=== PATIENT | female | born 1995 | race African-American/Black ===

== ENCOUNTER 2017-12-06 20:25 | Emergency (ER) | payer MEDICAID ==
[~2017-12-06] VITALS: Ht 175.3 cm; Wt 68.7 kg
[2017-12-06 21:40] LABS: CULTURE INDICATED? YES; MICROSCOPIC INDICATED
[2017-12-06 21:46] LABS: BASOPHILS # (AUTO) 0.02 x10^3/uL (0-0.1); BASOPHILS % (AUTO) 1 % (0-1); EOSINOPHILS # (AUTO) 0.18 x10^3/uL (0-0.4); EOSINOPHILS % (AUTO) 3 % (1-7); LYMPHOCYTES # (AUTO) 2.06 x10^3/uL (1-3.4); LYMPHOCYTES % (AUTO) 38 % (22-44); MD NO; MEAN CORPUSCULAR HEMOGLOBIN 25.7 pg (27.0-34.8); MEAN CORPUSCULAR HGB CONC 31.9 g/dL (32.4-35.8); MEAN CORPUSCULAR VOLUME 80.5 fL (80-100); MEAN PLATELET VOLUME 9.7 fL (7.4-10.4); MONOCYTES # (AUTO) 0.58 x10^3/uL (0.2-0.8); MONOCYTES % (AUTO) 11 % (2-9); NEUTROPHILS # (AUTO) 2.51 x10^3/uL (1.8-6.8); NEUTROPHILS % (AUTO) 47 % (42-75); PLATELET COUNT 178 x10^3/uL (130-400); RED BLOOD COUNT 4.71 x10^6/uL (3.82-5.3); RED CELL DISTRIBUTION WIDTH 13.9 % (9.6-15.2)
[2017-12-06 21:56] LABS: ALBUMIN 3.5 g/dL (3.4-5.0); ANION GAP 5 mmol/L (5-15); CALCIUM 8.5 mg/dL (8.5-10.1); CHLORIDE 108 mmol/L (98-107); CREATININE 0.85 mg/dL (0.55-1.02)
[2017-12-06 22:24] VITALS: BP 103/54
== END 2017-12-06 23:37 | disposition home or self-care (01) ==
LOC: ED 23:05
DX: O03.4 Incomplete spontaneous abortion without complication (principal); Z88.6 Allergy status to analgesic agent
CPT/HCPCS: 36415; 76801; 80048; 81001; 82040; 84702; 85025; 86901; 87077; 87086; 87186; 99285

== ENCOUNTER 2017-12-26 08:34 | Emergency (ER) | payer MEDICAID ==
[~2017-12-26] VITALS: Ht 175.3 cm; Wt 69.0 kg
[2017-12-26 08:35] VITALS: BP 112/58
== END 2017-12-26 09:22 | disposition home or self-care (01) ==
LOC: ED 09:11
DX: S40.862A Insect bite (nonvenomous) of left upper arm, initial encounter (principal); S70.362A Insect bite (nonvenomous), left thigh, initial encounter; L03.114 Cellulitis of left upper limb; L03.116 Cellulitis of left lower limb; W57.XXXA Bitten or stung by nonvenomous insect and other nonvenomous arthropods, initial encounter; Y93.89 Activity, other specified; Y92.89 Other specified places as the place of occurrence of the external cause; Y99.8 Other external cause status
CPT/HCPCS: 99283

== ENCOUNTER 2018-02-08 13:26 | Emergency (ER) | payer MEDICAID ==
[~2018-02-08] VITALS: Ht 175.3 cm; Wt 66.1 kg
[2018-02-08 14:11] LABS: MEAN CORPUSCULAR HEMOGLOBIN 26.1 pg (27.0-34.8); MEAN CORPUSCULAR HGB CONC 32.4 g/dL (32.4-35.8); MEAN CORPUSCULAR VOLUME 80.3 fL (80-100); MEAN PLATELET VOLUME 9.7 fL (7.4-10.4); PLATELET COUNT 186 x10^3/uL (130-400); RED BLOOD COUNT 4.82 x10^6/uL (3.82-5.3); RED CELL DISTRIBUTION WIDTH 13.9 % (9.6-15.2)
[2018-02-08 14:12] LABS: ANION GAP 10 mmol/L (5-15); CALCIUM 8.8 mg/dL (8.5-10.1); CHLORIDE 106 mmol/L (98-107)
[2018-02-08 14:35] LABS: MD SCAN
[2018-02-08 14:36] LABS: BASOPHILS # (AUTO) 0.02 x10^3/uL (0-0.1); BASOPHILS % (AUTO) 1 % (0-1); EOSINOPHILS # (AUTO) 0.09 x10^3/uL (0-0.4); EOSINOPHILS % (AUTO) 2 % (1-7); LYMPHOCYTES # (AUTO) 1.62 x10^3/uL (1-3.4); LYMPHOCYTES % (AUTO) 39 % (22-44); MONOCYTES # (AUTO) 0.65 x10^3/uL (0.2-0.8); MONOCYTES % (AUTO) 16 % (2-9); NEUTROPHILS # (AUTO) 1.79 x10^3/uL (1.8-6.8); NEUTROPHILS % (AUTO) 43 % (42-75)
[2018-02-08 15:30] LABS: CULTURE INDICATED? YES; MICROSCOPIC INDICATED
[2018-02-08 16:11] VITALS: BP 118/60
== END 2018-02-08 16:13 | disposition home or self-care (01) ==
LOC: ED 15:23
DX: O26.891 Other specified pregnancy related conditions, first trimester (principal); R10.9 Unspecified abdominal pain; Z3A.01 Less than 8 weeks gestation of pregnancy
CPT/HCPCS: 36415; 76830; 80048; 81001; 82040; 84703; 85025; 87086; 99285

== ENCOUNTER 2018-03-29 09:17 | Emergency (ER) | payer MEDICAID ==
[~2018-03-29] VITALS: Ht 175.3 cm; Wt 70.1 kg
[2018-03-29] MEDS ORDERED: DIPHENHYDRAMINE 50 MG/ML, 1ML ONE (09:55)
[2018-03-29] MEDS ORDERED: DEXAMETHASONE 4 MG/ML, 1ML ONE (09:55)
[2018-03-29] MEDS ORDERED: METOCLOPRAMIDE 5 MG/ML, 2ML ONE (09:55)
[2018-03-29] MEDS ORDERED: DIPHENHYDRAMINE 50 MG/ML, 1ML IVPush ONE (10:00)
[2018-03-29] MEDS ORDERED: METOCLOPRAMIDE 5 MG/ML, 2ML IVPush ONE (11:00)
[2018-03-29] MEDS ORDERED: DEXAMETHASONE 4 MG/ML, 1ML IV ONE (11:00)
[2018-03-29] MEDS ORDERED: SODIUM CHLORIDE 0.9% 1,000ML IVBOLUS ONE (11:00)
[2018-03-29] MEDS ORDERED: SODIUM CHLORIDE FLUSH 10ML SYR IVF ONE (11:00)
[2018-03-29 12:09] VITALS: BP 107/58
== END 2018-03-29 12:11 | disposition home or self-care (01) ==
LOC: ED 10:30
DX: G43.111 Migraine with aura, intractable, with status migrainosus (principal); Z79.82 Long term (current) use of aspirin
CPT/HCPCS: 96374; 96375; 99284; J1100; J1200; J2765; J7030